=== PATIENT | female | born 1965 | race Caucasian/White ===

== ENCOUNTER 2019-08-16 12:28 | Outpatient (RCR) | payer OTHER, SELFPAY | END 2019-09-06 00:01 | LOC: SPT 12:28 | PROVIDERS: Family Provider Family Medicine; Visit Provider Family Medicine | DX: M19.90 Unspecified osteoarthritis, unspecified site (principal) | CPT/HCPCS: 97161 ==

== ENCOUNTER 2019-09-10 18:27 | Outpatient (RCR) | payer OTHER, SELFPAY | END 2019-10-07 23:59 | disposition home or self-care (01) | LOC: SPT 18:27 | PROVIDERS: Family Provider Family Medicine; PCP Family Medicine; Visit Provider Family Medicine | DX: M25.559 Pain in unspecified hip (principal); M25.519 Pain in unspecified shoulder ==

== ENCOUNTER 2020-12-26 10:37 | Outpatient (CLI) | payer OTHER, SELFPAY ==
--- NOTE | 2020-12-26 10:44 | MM_ITS ---
WS: [id number] SCREENING DIGITAL MAMMOGRAM WITH CAD HISTORY: SCREENING COMPARISON: 06/22/2019, 07/13/2017 and 12/18/2016 Bilateral CC and MLO views submitted. Computer aided detection analyzed. Breast composition: There are scattered areas of fibroglandular density. Cluster of calcifications in the upper-outer quadrant of the RIGHT breast. This is a tight cluster in the CC projection with the calcifications more scattered on the MLO. Biopsy clip in the anterior RIGHT breast adjacent to a nodu le is stable. No additional calcifications. MM/[place] [id number] Impression: BI-RADS 0. Recommendation: Additional imaging. Recommend magnification views of calcifications in the RIGHT upper outer quadra nt.
== END 2020-12-26 10:38 | disposition home or self-care (01) ==
LOC: RADSHAW 10:41
PROVIDERS: PCP Family Medicine; Visit Provider Family Medicine
DX: Z12.31 Encounter for screening mammogram for malignant neoplasm of breast (principal)
CPT/HCPCS: 77067

== ENCOUNTER 2021-01-03 08:10 | Outpatient (CLI) | payer OTHER, SELFPAY ==
--- NOTE | 2021-01-03 08:14 | MM_ITS ---
WS: [id number] ADDITIONAL VIEWS RIGHT BREAST HISTORY: ABNORMAL MAMMOGRAM RT BREAST COMPARISON: 12/26/2020 and 06/22/2019 and 07/13/2017 Magnification views right CC and MLO projection. True ML also submitted. There is a cluster of pleomorphic calcifications in the posterior upper-outer quadrant of the RIGHT b reast near the 10-11 o'clock axis. No definite associated soft tissue mass. MM/[place] [id number] IMPRESSION: BI-RADS: 4-Suspicious Finding-Biopsy Should Be Considered FOLLOW-UP: Biopsy Recommended Stereotactic biopsy recommended of the suspicious calcifications in the upper-o uter quadrant RIGHT breast. Notified Jemal Gonzalez MD at 01/03/2021 11:51 AM.
== END 2021-01-03 08:11 | disposition home or self-care (01) ==
PROVIDERS: PCP Family Medicine; Visit Provider Family Medicine
DX: R92.8 Other abnormal and inconclusive findings on diagnostic imaging of breast (principal); R92.1 Mammographic calcification found on diagnostic imaging of breast
CPT/HCPCS: 77065

== ENCOUNTER → 2021-01-17 10:02 | Outpatient (BNVA) | payer OTHER, SELFPAY | PROVIDERS: PCP Family Medicine; Visit Provider Internal Medicine Rheumatology | DX: M19.041 Primary osteoarthritis, right hand (principal); M19.042 Primary osteoarthritis, left hand; Z79.899 Other long term (current) drug therapy | CPT/HCPCS: 99204 ==

== ENCOUNTER 2021-01-17 11:29 | Outpatient (CLI) | payer OTHER, SELFPAY ==
--- NOTE | 2021-01-17 11:40 | XR_ITS ---
WS: [id number] Left knee, 3 views, 01/17/2021 Clinical Data: M19.90 - Unspecified osteoarthritis, unspecified site Comparison: None. Findings: No fractures or dislocations are seen. The joint spaces are normal. The patella is intact. The soft t issues are unremarkable. XR/XR knee LT 3V* [id number] Impression: Negative left knee.
--- NOTE | 2021-01-17 11:40 | XR_ITS ---
WS: [id number] Left shoulder, 2 views, 01/17/2021 Clinical Data: M19.90 - Unspecified osteoarthritis, unspecified site Comparison: Left shoulder, 08/10/2019. Findings: No fractures or dislocations are seen. The AC joint is normal. The adjacent left clavicle, left scapu la and ribs are normal. The soft tissues are unremarkable. XR/XR shoulder LT min 2V* [id number] Impression: Negative left shoulder.
--- NOTE | 2021-01-17 11:40 | XR_ITS ---
WS: [id number] Right shoulder, 2 views, 01/17/2021 Clinical Data: M19.90 - Unspecified osteoarthritis, unspecified site Comparison: Right shoulder, 08/10/2019. Findings: No fractures or dislocations are seen. The AC joint is normal. The adjacent right clavicle, right sca pula and ribs are normal. The soft tissues are unremarkable. XR/XR shoulder RT min 2V* [id number] Impression: Negative right shoulder.
--- NOTE | 2021-01-17 11:40 | XR_ITS ---
WS: [id number] Left hand, 3 views, 01/17/2021 Clinical Data: Z79.899 - Other residential (current) drug therapy Comparison: None. Findings: No fractures or dislocations are seen. The soft tissues are unremarkable. The joint spaces are normal There is minimal cystic change and sclerosis of the lunate. XR/XR hand LT min 3V* [id number] Impression: Negative left hand.
--- NOTE | 2021-01-17 11:40 | XR_ITS ---
WS: [id number] Right hand, 3 views, 01/17/2021 Clinical Data: Z79.899 - Other detention (current) drug therapy Comparison: None. Findings: No fractures or dislocations are seen. The soft tissues are unremarkable. The joint space s are normal XR/XR hand RT min 3V* [id number] Impression: Negative right hand.
[2021-01-17 12:39] LABS: C Reactive Protein 1.8 mg/L (0.0-4.9)
[2021-01-17 13:23] LABS: Erythrocyte Sedimentation Rate 8 mm/hr (0-15)
[2021-01-18 13:27] LABS: Cyclic Citrullinated Peptide <16 UNITS
== END 2021-01-17 11:30 | disposition home or self-care (01) ==
LOC: RAD 11:38
PROVIDERS: PCP Family Medicine; Visit Provider Internal Medicine Rheumatology
DX: M19.90 Unspecified osteoarthritis, unspecified site (principal); Z79.899 Other long term (current) drug therapy
CPT/HCPCS: 36415; 73030; 73130; 73562; 85651; 86140

== ENCOUNTER 2021-01-18 12:13 | Outpatient (CLI) | payer OTHER, SELFPAY ==
--- NOTE | 2021-01-18 12:18 | MM_ITS ---
WS: [id number] STEREOTACTIC RIGHT BREAST BIOPSY WITH VACUUM ASSISTANCE HISTORY: RIGHT breast calcifications or distortion. COMPARISON: 12/26/2020, 01/03/2021 and 06/22/2019 Procedure, risks and complications were explained to the patient. Medications and prior radiographs a re reviewed. RIGHT breast calcifications are located. Calcifications are targeted in the craniocaudal projection. The skin is cleansed with ChloraPrep and anesthetized with 1% buffered lidocaine. Deeper soft tissues anesthetized with a combination of lidocaine and epinephrine. Small dermatome is made. Needle advanc ed into the RIGHT breast. Stereotactic imaging reveals appropriate positioning adjacent calcification s. Multiple vacuum-assisted core biopsies are obtained. 2 separate attempts were performed in order t o achieve sufficient calcification. No complications were encountered. Post biopsy specimen radiograph reveals numerous calcifications. Biopsy clips are placed in the cavity. Post imaging reveals good placement of the clip. No migration. Pressures held for approximately 15 minutes. No bleeding. Dressing applied. Patient discharged with n o complications. There is no bleeding. With any questions or complications patient is to return. MM/[place] vac assist [id number] IMPRESSION: 1. Uncomplicated RIGHT breast stereotactic biopsy. 2. Specimen contains numerous calcifications. Pathology: Fibroadenoma with microcalcifications. No malignancy. RECOMMENDATION: Diagnostic mammogram 6 months. Calcifications have been removed and there was excellent sampling in the area o f suspicion seen on prior mammogram. The diagnosis of fibroadenoma is not conco rdant with imaging findings. There was no mass. There was architectural distort ion and some calcifications. This area was well sampled. Suggest 6 month diagno stic RIGHT mammogram follow-up. If the calcifications return or there is increa sed soft tissue mass surgical biopsy should be obtained.
--- NOTE | 2021-01-18 12:18 | MM_ITS ---
WS: [id number] STEREOTACTIC RIGHT BREAST BIOPSY WITH VACUUM ASSISTANCE HISTORY: RIGHT breast calcifications or distortion. COMPARISON: 12/26/2020, 01/03/2021 and 06/22/2019 Procedure, risks and complications were explained to the patient. Medications and prior radiographs a re reviewed. RIGHT breast calcifications are located. Calcifications are targeted in the craniocaudal projection. The skin is cleansed with ChloraPrep and anesthetized with 1% buffered lidocaine. Deeper soft tissues anesthetized with a combination of lidocaine and epinephrine. Small dermatome is made. Needle advanc ed into the RIGHT breast. Stereotactic imaging reveals appropriate positioning adjacent calcification s. Multiple vacuum-assisted core biopsies are obtained. 2 separate attempts were performed in order t o achieve sufficient calcification. No complications were encountered. Post biopsy specimen radiograph reveals numerous calcifications. Biopsy clips are placed in the cavity. Post imaging reveals good placement of the clip. No migration. Pressures held for approximately 15 minutes. No bleeding. Dressing applied. Patient discharged with n o complications. There is no bleeding. With any questions or complications patient is to return. MM/[place] [id number] IMPRESSION: 1. Uncomplicated RIGHT breast stereotactic biopsy. 2. Specimen contains numerous calcifications. Pathology: Fibroadenoma with microcalcifications. No malignancy. RECOMMENDATION: Diagnostic mammogram 6 months. Calcifications have been removed and there was excellent sampling in the area o f suspicion seen on prior mammogram. The diagnosis of fibroadenoma is not conco rdant with imaging findings. There was no mass. There was architectural distort ion and some calcifications. This area was well sampled. Suggest 6 month diagno stic RIGHT mammogram follow-up. If the calcifications return or there is increa sed soft tissue mass surgical biopsy should be obtained.
--- NOTE | 2021-01-18 12:18 | MM_ITS ---
WS: [id number] STEREOTACTIC RIGHT BREAST BIOPSY WITH VACUUM ASSISTANCE HISTORY: RIGHT breast calcifications or distortion. COMPARISON: 12/26/2020, 01/03/2021 and 06/22/2019 Procedure, risks and complications were explained to the patient. Medications and prior radiographs a re reviewed. RIGHT breast calcifications are located. Calcifications are targeted in the craniocaudal projection. The skin is cleansed with ChloraPrep and anesthetized with 1% buffered lidocaine. Deeper soft tissues anesthetized with a combination of lidocaine and epinephrine. Small dermatome is made. Needle advanc ed into the RIGHT breast. Stereotactic imaging reveals appropriate positioning adjacent calcification s. Multiple vacuum-assisted core biopsies are obtained. 2 separate attempts were performed in order t o achieve sufficient calcification. No complications were encountered. Post biopsy specimen radiograph reveals numerous calcifications. Biopsy clips are placed in the cavity. Post imaging reveals good placement of the clip. No migration. Pressures held for approximately 15 minutes. No bleeding. Dressing applied. Patient discharged with n o complications. There is no bleeding. With any questions or complications patient is to return. MM/MM surgical specimen RT IMPRESSION: 1. Uncomplicated RIGHT breast stereotactic biopsy. 2. Specimen contains numerous calcifications. Pathology: Fibroadenoma with microcalcifications. No malignancy. RECOMMENDATION: Diagnostic mammogram 6 months. Calcifications have been removed and there was excellent sampling in the area o f suspicion seen on prior mammogram. The diagnosis of fibroadenoma is not conco rdant with imaging findings. There was no mass. There was architectural distort ion and some calcifications. This area was well sampled. Suggest 6 month diagno stic RIGHT mammogram follow-up. If the calcifications return or there is increa sed soft tissue mass surgical biopsy should be obtained.
== END 2021-01-18 12:14 | disposition home or self-care (01) ==
LOC: RADSHAW 12:16
PROVIDERS: PCP Family Medicine; Visit Provider Family Medicine
DX: R92.8 Other abnormal and inconclusive findings on diagnostic imaging of breast (principal); N63.10 Unspecified lump in the right breast, unspecified quadrant; D24.1 Benign neoplasm of right breast
CPT/HCPCS: 19081; 77065; 88305; J7050

== ENCOUNTER → 2021-03-07 15:08 | Outpatient (BNVA) | payer OTHER, SELFPAY | PROVIDERS: PCP Family Medicine; Visit Provider Internal Medicine Rheumatology | DX: M19.041 Primary osteoarthritis, right hand (principal); M19.042 Primary osteoarthritis, left hand; M25.50 Pain in unspecified joint; M25.60 Stiffness of unspecified joint, not elsewhere classified | CPT/HCPCS: 99214 ==

== ENCOUNTER 2022-03-21 13:41 | Outpatient (CLI) | payer OTHER, SELFPAY ==
--- NOTE | 2022-03-21 13:52 | MM_ITS ---
WS: [id number] BILATERAL DIAGNOSTIC DIGITAL BREAST TOMOSYNTHESIS MAMMOGRAM WITH CAD HISTORY: RT BREAST ABNORMAL MAMMOGRAM COMPARISON: 07/13/2017, 06/22/2019, 01/18/2021 Bilateral CC and MLO and MLO views with tomosynthesis and synthetic mammography submitted. Computer a ided detection analyzed. Breast composition: There are scattered areas of fibroglandular density. No suspicious masses, microc alcifications or architectural distortion. Biopsy clips in the upper outer quadrant of the RIGHT [address]ia [address] are reidentified. 2 biopsy clips are present. Calcifications at this site previously described hav e been removed stereotactically. No recurrent calcification or mass. Additional biopsy clips in the a nterior RIGHT breast. LEFT is negative. MM/[place] [id number] IMPRESSION: BI-RADS: 2-Benign FOLLOW UP: 1 Year Follow-up
== END 2022-03-21 13:42 | disposition home or self-care (01) ==
PROVIDERS: PCP Family Medicine; Visit Provider Family Medicine
DX: R92.8 Other abnormal and inconclusive findings on diagnostic imaging of breast (principal)
CPT/HCPCS: 77062

== ENCOUNTER 2024-04-22 10:40 | Emergency (ER) | payer OTHER, SELFPAY ==
[2024-04-22 10:44] VITALS: BP 146/91; PULSE 72; RESP 16; TEMP 36.7; O2SAT 99; BMI 30.6
--- NOTE | 2024-04-22 10:57 | W.ED.FALL ---
HPI - Fall General: Chief Complaint: Fall Stated Complaint: fall, back pain Time Seen by Provider: 04/22/24 10:42 Source: patient and family Mode of arrival: ambulatory Limitations: no limitations History of Present Illness: Patient is a 58-year-old female presents to ED today for evaluation following a fall. Patient states she was at [facility] when there was a puddle of water on the ground causing her to slip and fall. She states she fell onto her right buttock. She was able to get up following the fall. She states she feels sore . She denies striking her head or LOC. She has no midline back pain. Feels like her neck is starting to get a little sore. Patient states they just wanted get checked out for documentation purposes. MD complaint: fall Onset (ago): hour(s) Fall from: standing Fall witnessed: yes, by bystander Place fall occurred: other ([facility]) Loss of consciousness: None Prolonged down time: no Symptoms prior to fall: none Context: tripped/slipped (on puddle of water on the ground) Associated symptoms-after fall: Reports neck pain; Denies abdominal pain, chest pain, difficulty walking, headache(s), hematuria or lightheadedness Related Data Home Medications Medication Instructions Recorded Confirmed aspirin 81 mg tablet,delayed 81 mg PO DAILY 01/16/21 03/07/21 release paroxetine HCl 10 mg tablet (Paxil) 10 mg PO DAILY 01/16/21 03/07/21 rosuvastatin 5 mg tablet 5 mg PO DAILY 03/07/21 03/07/21 Previous Rx's Medication Instructions Recorded diclofenac sodium 1 % topical gel 2 g topical QID #100 grams 01/17/21 diclofenac sodium 75 mg 75 mg PO BID PRN pain, 03/07/21 tablet,delayed release moderate-severe #30 tabs Allergies Allergy/AdvReac Type Severity Reaction Status Date / Time atorvastatin [From Lipitor] Allergy Unknown Verified 04/22/24 10:53 Review of Systems Eyes: Denies: change in vision, blurry vision, photophobia, eye discharge, floaters or seeing flashes ENMT: Denies: ear or mastoid pain, ear discharge, nasal discharge, epistaxis or sinus pain Card: Denies: chest pain, palpitations, lightheadedness, syncope or pre-syncope Resp: Denies: dyspnea or pain on inspiration GI: Denies: abdominal pain : Denies: flank pain or hematuria Musc: Reports: neck pain, back pain and joint pain; Denies: extremity pain, joint swelling, joint redness or limited range of motion Neuro: Denies: headache(s), numbness in extremities, weakness in extremities, sensory changes, difficulty walking or dizziness PFSH ED PFSH: Medical History Morning stiffness of joints Osteoarthritis of hands, bilateral Inflammatory arthritis Polyarthralgia Joint pain Fibrocystic breast disease (FCBD) in female Hypercholesteremia Surgical History History of endometrial ablation History of surgery on arm 2016 left tennis elbow and arthritis Family History Other CAD (coronary artery disease) Cancer Diabetes Hyperlipidemia Denies family history of Rheumatoid arthritis Lupus Lung disease Hypertension Stroke Social History Smoking and tobacco/nicotine status: never used tobacco/nicotine Alcohol intake: never Physical Exam Const: COMMON NORMALS: no acute distress, average body habitus, patient oriented x3, no limitations, healthy appearing, alert and well nourished GENERAL APPEARANCE: cooperative ORIENTATION/CONSCIOUSNESS: Yes awake, Yes oriented to person, Yes oriented to place and Yes oriented to time HENMT: COMMON NORMALS: normocephalic and atraumatic HEAD & SCALP: normal to inspection, normocephalic and atraumatic; no Riddle's sign, no hematoma and no raccoon eyes FACE & SINUS: normal facial exam Eye: GENERAL EYE: appearance normal, both eyes and all related structures Neck/C-Spine: COMMON NORMALS: full ROM GENERAL: Yes normal visual inspection CERVICAL SPINE: Yes cervical ROM normal and Yes Paracervical muscle tenderness Chest: COMMONS NORMALS: normal inspection of the chest and normal palpation of entire chest wall Resp: COMMON NORMALS: normal respiratory effort and clear to auscultation bilaterally AUSCULTATION: clear to auscultation bilaterally Cardio: COMMON NORMALS: regular rate and regular rhythm RATE: regular rate RHYTHM: regular rhythm GI: COMMON NORMALS: Normal to inspection, nondistended, normoactive bowel sounds present, Soft to palpation, non-tender and no masses INSPECTION: Yes normal to inspection and No abdominal wall ecchymosis AUSCULTATION: Yes normoactive bowel sounds PALPATION: Yes Soft to palpation Back/Pelvis: COMMON NORMALS: thoracic and lumbar spine normal to inspection, no thoracic nor lumbar tenderness and thoraco-lumbar ROM normal OTHER: no midline back pain Extremity: COMMON NORMALS: full ROM, capillary refill normal and no clubbing, cyanosis or edema GENERAL: Yes normal exam except as noted RIGHT LOWER EXTREMITY: Yes hip joint (full ROM of joint; TTP under R buttock) Right hip: Yes ROM (normal) and Yes neurovascular exam (normal) LEFT LOWER EXTREMITY: Yes hip joint (full painless ROM of hip; mild pain L PSIS) Left hip: Yes ROM (normal) and Yes neurovascular exam (normal) OTHER: mild pain near L PSIS and R ischium Neuro: KAVIN COMA SCALE: document GCS findings [place] coma scale eye opening: Spontaneous [place] coma scale verbal response: Orientated [place] coma scale motor response: Obey commands [place] coma scale total score: 15 COMMON NORMALS: patient oriented x3, CN's II-XII intact bilaterally, moves all extremities, no focal motor deficits, no sensory deficits noted and gait normal SENSORIUM/ORIENTATION: Yes alert, Yes oriented to person, Yes oriented to place and Yes oriented to time SPEECH: speech normal GAIT: Yes Normal gait present Skin: COMMON NORMALS: no rashes or lesions noted GENERAL SKIN EXAM: no rashes or lesions noted TRAUMA: no lacerations or abrasions Course Vital Signs: Vital signs: Vital Signs Temperature 98.0 F 04/22/24 10:44 Pulse Rate 72 04/22/24 10:44 Respiratory Rate 16 04/22/24 10:44 Blood Pressure 146/91 04/22/24 10:44 Pulse Oximetry 99 04/22/24 10:44 Oxygen Delivery Me thod Room Air 04/22/24 10:44 MDM - Fall Medical Decision Making XRs unremarkable. He is ambulatory here without difficulty or assistance. She states she was instructed by [employer] today that she should be receiving an email through [employer] for instructions on medical care. She is stable for DC from the emergency department at this time. Return ED precautions given. Lab Data Radiology Impressions Cervical Spine X-Ray 04/22/24 11:06 Impression: There is no compression or subluxation. Mild degenerative changes are noted as above. Pelvis X-Ray 04/22/24 11:06 Impression: Question nondisplaced fracture involving the base of the left inferior pubic ramus. I recommend further imaging of the left hip. Hip/Pelvis X-Ray 04/22/24 11:36 Impression: No acute bony abnormality of the left hip is identified. All radiology interpretation(s) finalized by discharge Discharge Plan Discharge Patient Disposition: Home Clinical Impression: Contusion of right buttock Fall from slipping Qualifiers: Encounter type: initial encounter Qualified Code(s): W01.0XXA - Fall on same level from slipping, tripping and stumbling without subsequent striking against object, initial encounter Condition: Stable Prescriptions: No Action diclofenac sodium 1 % gel 2 g topical QID Qty: 100 2RF Rx Instructions: apply to affected area as needed rosuvastatin 5 mg tablet 5 mg PO DAILY diclofenac sodium 75 mg tablet,delayed release (DR/EC) 75 mg PO BID PRN (Reason: pain, moderate-severe) Qty: 30 0RF paroxetine HCl [Paxil] 10 mg tablet 10 mg PO DAILY aspirin 81 mg tablet,delayed release (DR/EC) 81 mg PO DAILY Discharge Orders: Discharge ED (Routine); Ordered 04/22/24 Ordered By: Meena Moss Referrals: Jemal Gonzalez MD [Primary Care Provider] - Activity Restrictions/Additional Instructions: As we discussed, follow instructions for any further medical care as directed through your [employer] email. Coding Level of Care Code ED [employer] for Luis Carlos Hernandez
--- NOTE | 2024-04-22 11:06 | XR_ITS ---
WS: [id number] Examination: XR pelvis 1-2V* [id number] Reason for Exam: fall Date: April 22, 2024 Comparison: None. Findings: The bone density is maintained. There is no destruction. The SI joints are symmetric. There is an asymmetric lucency on the left near the base of the inferior pubic ramus. A nondisplaced fracture could have this appearance. XR/XR pelvis 1-2V* [id number] Impression: Question nondisplaced fracture involving the base of the left inferior pubic ra mus. I recommend further imaging of the left hip.
--- NOTE | 2024-04-22 11:06 | XR_ITS ---
WS: [id number] Examination: XR cervical spine 3V* [id number] Reason for Exam: fall Date: April 22, 2024 Comparison: None. Findings: The MANOHAR and the C1-2 relationship are intact. There is no anterior wedging or compression. There is no subluxation The disc base heights are generally maintained. Mild anterior lipping is identified at C4-C6 XR/XR cervical spine 3V* [id number] Impression: There is no compression or subluxation. Mild degenerative changes are noted as above.
--- NOTE | 2024-04-22 11:36 | XR_ITS ---
WS: [id number] Examination: XR hip LT 2-3V wo/w pel* [id number] Reason for Exam: abnormal pelvis XR finding; questionable pubic rami fx Date: April 22, 2024 Comparison: Pelvis study dated 04/22/2024 Findings: The bone density and the joint space is maintained. There is no acute fracture or dislocation. There is no destruction. XR/XR hip LT 2-3V wo/w pel* [id number] Impression: No acute bony abnormality of the left hip is identified.
[2024-04-22 12:09] VITALS: BP 139/99; PULSE 68; O2SAT 99
== END 2024-04-22 12:14 | disposition home or self-care (01) ==
PROVIDERS: Emergency Provider Physician Assistant; PCP Family Medicine
DX: S30.0XXA Contusion of lower back and pelvis, initial encounter (principal); W01.0XXA Fall on same level from slipping, tripping and stumbling without subsequent striking against object, initial encounter; Z79.82 Long term (current) use of aspirin; Y92.512 Supermarket, store or market as the place of occurrence of the external cause
CPT/HCPCS: 72040; 72170; 73502; 99284

== ENCOUNTER 2024-05-16 06:35 | Outpatient (CLI) | payer OTHER, SELFPAY ==
--- NOTE | 2024-05-16 07:00 | CT_ITS ---
WS: [id number] CT PELVIS NONCONTRAST HISTORY: pelvic pain after a fall TECHNIQUE: Contiguous imaging is performed of the pelvis without contrast. Coronal and sagittal refor mats are reviewed. All CT scans at [facility] use at least one of these dose optimization inderjit hniques: automated exposure control; mA and/or kV adjustment per patient size (includes targeted exam s where dose is matched to clinical indication); or iterative reconstruction. DLP: 260.33 mGy.cm COMPARISON: Radiograph 04/22/2024 No acute fractures or dislocations. SI joints are symmetric bilaterally with degenerative air. Normal sacral alignment. No soft tissue hematoma or contusion. No adenopathy. No free fluid in the pelvis. CT/CT bony pelvis [id number] IMPRESSION: Negative CT bony pelvis for fracture.
== END 2024-05-16 06:36 | disposition home or self-care (01) ==
PROVIDERS: PCP Family Medicine; Visit Provider Family Medicine
DX: G57.00 Lesion of sciatic nerve, unspecified lower limb (principal); R10.2 Pelvic and perineal pain; R20.2 Paresthesia of skin
CPT/HCPCS: 72192

== ENCOUNTER 2024-06-01 15:08 | Outpatient (RCR) | payer OTHER, SELFPAY | END 2024-06-06 23:59 | disposition home or self-care (01) | LOC: SPT 15:08 | PROVIDERS: PCP Family Medicine; Visit Provider Family Medicine | DX: M25.552 Pain in left hip (principal); M25.551 Pain in right hip | CPT/HCPCS: 97161 ==

== ENCOUNTER 2024-06-07 06:00 | Outpatient (RCR) | payer OTHER, SELFPAY | END 2024-07-07 23:59 | disposition home or self-care (01) | LOC: SPT 06:00 | PROVIDERS: PCP Family Medicine; Visit Provider Family Medicine | DX: G57.00 Lesion of sciatic nerve, unspecified lower limb (principal); R20.2 Paresthesia of skin | CPT/HCPCS: 97110 ==

== ENCOUNTER 2024-06-17 08:27 | Outpatient (CLI) | payer OTHER, SELFPAY ==
--- NOTE | 2024-06-17 08:45 | MR_ITS ---
WS: [id number] MRI LUMBAR SPINE NONCONTRAST TECHNIQUE: Sagittal T1, T2 and STIR imaging. Axial T1 and T2 imaging. CLINICAL INFORMATION: lumbar back pain COMPARISON: None. FINDINGS: Mild lumbar curve. No acute compression. Disc bulging worse at L4-5. L1-L2: Mild facet arthropathy. Spinal canal and foramina patent. L2-L3: No significant disc bulging. Mild facet arthropathy. Spinal canal and foramen are patent. L3-L4: Mild annular bulging. Moderate facet arthropathy. Spinal canal and foramen are patent. L4-L5: Mild annular bulging. Mild to moderate central canal stenosis. Impingement subarticular recess bilaterally. Moderate facet arthropathy. Impingement on the traversing LEFT greater than RIGHT L5 ne rve roots. Foramen are patent. L5-S1: Mild annular bulging. Slight effacement of the ventral thecal sac. Spinal canal and foramen ar e patent. Mild facet arthropathy. Visualized pelvic bony structures: Normal. Paravertebral soft tissues: Normal. MR/MR lumbar spine wo con* [id number] IMPRESSION: 1. Mild lumbar curve. No acute compression. 2. Mild to moderate central canal stenosis L4-5 with impingement of the LEFT g reater than RIGHT traversing L5 nerve roots. 3. Moderate facet arthropathy L3-L5. 4. Mild annular bulging L3-4 with slight effacement of ventral thecal sac. 5. No other acute findings.
== END 2024-06-17 08:28 | disposition home or self-care (01) ==
LOC: RAD 08:28
PROVIDERS: PCP Family Medicine; Visit Provider Family Medicine
DX: M47.896 Other spondylosis, lumbar region (principal); M99.63 Osseous and subluxation stenosis of intervertebral foramina of lumbar region; R10.2 Pelvic and perineal pain; M54.30 Sciatica, unspecified side
CPT/HCPCS: 72148

== ENCOUNTER 2024-07-08 06:00 | Outpatient (RCR) | payer OTHER, SELFPAY | END 2024-08-06 23:59 | disposition home or self-care (01) | LOC: SPT 06:00 | PROVIDERS: PCP Family Medicine; Visit Provider Family Medicine | DX: G57.00 Lesion of sciatic nerve, unspecified lower limb (principal) | CPT/HCPCS: 97110; 97164 ==

== ENCOUNTER 2024-08-07 06:00 | Outpatient (RCR) | payer OTHER, SELFPAY | END 2024-08-31 23:59 | disposition home or self-care (01) | LOC: SPT 06:00 | PROVIDERS: PCP Family Medicine; Visit Provider Family Medicine | DX: G57.00 Lesion of sciatic nerve, unspecified lower limb (principal); R20.2 Paresthesia of skin | CPT/HCPCS: 97110 ==

== ENCOUNTER → 2024-09-20 14:32 | Outpatient (BNVA) | payer OTHER, SELFPAY | PROVIDERS: PCP Family Medicine; Visit Provider Orthopaedic Surgery | DX: M54.9 Dorsalgia, unspecified (principal) | CPT/HCPCS: 72110 ==

== ENCOUNTER 2025-08-23 07:54 | Outpatient (CLI) | payer OTHER, SELFPAY ==
--- NOTE | 2025-08-23 08:00 | MR_ITS ---
WS: [id number] MRI CERVICAL SPINE NONCONTRAST HISTORY: neck pain COMPARISON: None available. Technique: Multiplanar, multisequence noncontrast imaging of the cervical spine. Normal cervical alignment with no compression fracture or significant disc space narrowing. Signal within the cervical cord is normal. Visualized posterior fossa is unremarkable. Craniocervical junction, C1 and C2 relationship, odontoid process and soft tissues are normal. C2-C3: Normal. C3-C4: Mild annular disc bulging. Small LEFT foraminal osteophytes. No stenosis. C4-C5: Annular disc bulging with a RIGHT paracentral disc protrusion causing mild effacement of CSF. Mild central and RIGHT foraminal stenosis. Mild facet arthritis. C5-C6: Annular disc bulging with a moderate size LEFT proximal foraminal disc osteophyte protrusion displacing the exiting nerve roots. Tiny RIGHT paracentral disc protrusion. Mild central with moderate LEFT foraminal stenosis and mild RIGHT foraminal stenosis. Mild facet arthritis. C6-C7: Mild disc bulging. Tiny disc protrusion centrally. No stenosis. C7-T1: Normal. T1-T2: Small RIGHT foraminal disc protrusion. MR/MR cervical spin wo con* [id number] IMPRESSION: 1. No high-grade central stenosis. 2. No marrow edema or acute fracture. 3. Moderate sized LEFT proximal foraminal disc osteophyte protrusion displacin g the nerve roots at C5-6. Mild central with moderate LEFT and mild RIGHT ermias inal stenosis at C5-6. 4. Mild central and RIGHT foraminal stenosis at C4-5. Small RIGHT paracentral disc protrusion. 5. Small RIGHT foraminal disc protrusion at T1-2.
== END 2025-08-23 07:55 | disposition home or self-care (01) ==
PROVIDERS: PCP Family Medicine; Visit Provider Family Medicine
DX: M51.24 Other intervertebral disc displacement, thoracic region (principal); M47.812 Spondylosis without myelopathy or radiculopathy, cervical region; M48.04 Spinal stenosis, thoracic region; M50.223 Other cervical disc displacement at C6-C7 level
CPT/HCPCS: 72141; 80053; 80061; 85025

== ENCOUNTER 2025-08-25 09:20 | Outpatient (CLI) | payer OTHER, SELFPAY ==
--- NOTE | 2025-08-25 09:40 | MM_ITS ---
WS: [id number] BILATERAL 3D TOMOSYNTHESIS DIGITAL SCREENING MAMMOGRAPHY WITH CAD CLINICAL INFORMATION: screening HISTORY: Screening mammogram. No current complaints. COMPARISON: 2021 TECHNIQUE: Bilateral CC and MLO views. FINDINGS: Scattered fibroglandular densities bilaterally. No suspicious focal mass, asymmetry, calcifications, or architectural distortion. No evidence of malignancy. Biopsy clips RIGHT breast. Biopsy clip anterior RIGHT breast with stable nodule MM/MM scr BI tomosynthesis [id number] IMPRESSION: DENSITY: There are scattered areas of fibroglandular density. BI-RADS: 2 - Benign. FOLLOW UP: 1 Year Follow-up Recommend return to annual screening mammography.
== END 2025-08-25 09:21 | disposition home or self-care (01) ==
LOC: RAD 09:21
PROVIDERS: PCP Family Medicine; Visit Provider Family Medicine
DX: Z12.31 Encounter for screening mammogram for malignant neoplasm of breast (principal); E78.00 Pure hypercholesterolemia, unspecified; R92.323 Mammographic fibroglandular density, bilateral breasts; Z96.89 Presence of other specified functional implants; N63.10 Unspecified lump in the right breast, unspecified quadrant
CPT/HCPCS: 77063; 77067